=== PATIENT | female | born 1980 | race Caucasian/White ===

== ENCOUNTER 2019-10-29 16:20 | Outpatient (CLI) | payer OTHER, SELFPAY ==
--- NOTE | ~2019-10-29 | XR_ITS ---
XR shoulder LT min 2V DATE: 10/29/2019 16:54 INDICATION: Left shoulder pain. No injury. TECHNIQUE: 4 views COMPARISON: None FINDINGS: No fracture or dislocation, periosteal reaction or bone destruction. No abnormal soft tissu e calcification. IMPRESSION: Negative Reviewed, dictated and finalized at location B. IMPRESSION: Negative
== END 2019-10-29 16:21 | disposition home or self-care (01) ==
LOC: ANHIMG 16:30
PROVIDERS: PCP Family Medicine; Visit Provider Family Medicine
DX: M25.512 Pain in left shoulder (principal)
CPT/HCPCS: 73030

== ENCOUNTER 2020-03-19 00:28 | Outpatient (CLI) | payer OTHER, SELFPAY ==
[2020-03-19 18:52] LABS: SARS-CoV-2 RNA PCR Negative
== END 2020-03-19 00:29 | disposition home or self-care (01) ==
LOC: ANHCOVIDDT 00:28
PROVIDERS: PCP Family Medicine; Visit Provider Orthopaedic Surgery
DX: Z01.812 Encounter for preprocedural laboratory examination (principal); Z11.59 Encounter for screening for other viral diseases
CPT/HCPCS: 87635; C9803; U0003

== ENCOUNTER 2020-03-21 00:10 | Day surgery (SDC) | payer OTHER, SELFPAY ==
[2020-03-10 13:53] VITALS: BMI 27.4
[2020-03-21] VITALS (10 sets, daily range): BP systolic 110–130; BP diastolic 49–84; PULSE 76–107; RESP 12–20; TEMP 36.6; O2SAT 98–100
--- NOTE | 2020-03-21 09:23 | WPDHPUPDATE1 ---
History and Physical Update Update Date/Time: 03/21/20 09:23 History and Physical has been reviewed, including an updated exam of the patient. There are NO changes in the patient's condition. Risks, benefits, and alternatives have been discussed and questions answered. Patient agrees to proceed with procedure.
--- NOTE | 2020-03-21 10:29 | WPDANESEPPF ---
Anes - Initial Pre Proc Eval Procedure: Operation Date: 03/21/20 12:00 Proposed Procedures p Left Shoulder Arthroscopic Subacromial Decompression - Arden Hernandez MD Date/Time: 03/21/20 10:29 Surgeon: Arden Hernandez MD Pre Op Diagnosis: Left Shoulder Impingement Patient Data Age: 39 Gender: F Height: 5 ft 6 in Weight: 77.11 kg Allergies Allergy/AdvReac Type Severity Reaction Status Date / Time strawberry Allergy Mild hives Verified 03/10/20 13:52 Home Medications Medication Instructions Recorded Confirmed Type acetaminophen [Tylenol] 325 mg PO DIRECTED PRN 03/10/20 03/10/20 History desogestrel-ethinyl estradiol 1 tablet PO DAILY 03/10/20 03/10/20 History [Enskyce] Patient hx anesthesia problems: none Family hx anesthesia problems: none PMFSH Past Medical History Medical History (Updated 03/20/20 @ 10:26 by Noah Toledo DO) Hyperlipidemia Hypoglycemia Migraine Surgical History Surgical History H/O excision of ganglion cyst (~1993) H/O excision of ganglion cyst (~2000) S/P right knee arthroscopy (~1998) Social History Social History Social History: Single Smoking status: Never smoker Second hand tobacco smoke exposure: No Alcohol intake: never Substance use: never Substance use type: does not use Gender identity (if verbalized by the patient): Female Spiritual care concerns: No Anes - Eval Final PreProcedure Day of Procedure 03/21/20 10:29 Patient weight: normal Heart: regular rate and rhythm Lungs: clear to auscultation Airway: Mallampati scale class II Neurological: alert and oriented Last oral intake: >/= 8 hours ASA classification: II Emergent: no Anesthetic plan: proceed Anesthesia type and monitoring: general ETT and standard monitoring Informed Consent: The patient's anesthetic plan and its attendant risks and benefits were discussed with the patient/family/POA. Questions were solicited and answers provided to the satisfaction of the patient/family/POA.
[2020-03-21] MEDS: LACTATED RINGERS 1,000 ML 30 ML IV CONT ×2 (10:30→13:56)
[2020-03-21] MEDS: ACETAMINOPHEN 500 MG TABLET 1000 MG PO (10:56)
[2020-03-21] MEDS: KETOROLAC 15 MG/ML VIAL (*BKC) IV PUSH (10:57)
[2020-03-21] MEDS: ceFAZolin 2 GM/D5W 50 ML 2 GM/50 ML BAG IVPB (12:17)
[2020-03-21] MEDS: BUPIVACAINE/EPINEPHRINE 0.5% 10 ML VIAL 30 ML INFILTRATE (12:57)
--- NOTE | 2020-03-21 13:39 | PM.PROC ---
Procedure Note - Detailed Date of procedure: 03/21/20 Pre-op diagnosis: Left Shoulder Impingement Post-op diagnosis: same Procedure performed: Arthroscopic rotator cuff bursal side debridement and subacromial decompression Anesthesia: GLMA Surgeon: Arden Hernandez MD Estimated blood loss (mL): 10 Complications: No immediate complications Condition: stable Disposition: PACU
[2020-03-21 14:27] LABS: Glucose Point of Care 145 (65-105)
[2020-03-21] MEDS: ONDANSETRON INJ 4 MG/2 ML VIAL IV PUSH (14:31)
[2020-03-21] MEDS: diphenhydrAMINE HCl INJ 50 MG/ML VIAL 25 MG IV PUSH (15:30)
--- NOTE | 2020-04-11 09:49 | P.OP_ITS ---
Procedure Note - Detailed Date of procedure: 03/21/20 Pre-op diagnosis: Left Shoulder Impingement Post-op diagnosis: same Procedure performed: Arthroscopic subacromial decompression with bursal side rotator cuff debridement. Anesthesia: GLMA Surgeon: Arden Hernandez MD Estimated blood loss (mL): 10 Pathology: none sent Complications: No immediate complications Condition: stable Disposition: PACU Findings: Brief history: The patient complained of persistent pain with overhead and reaching activities. Pain persisted despite physical therapy and cortisone injections. Operative details: Patient was given an interscalene block in the holding area. Preoperative antibiotics were given. The patient was brought to the operating room. Careful positioning in the beach chair was accomplished. The head neck were carefully positioned. A small bump was placed under the left shoulder. The shoulder was examined. The shoulder was prepped and draped in the usual sterile fashion. Standard posterior and anterior arthroscopic portals were est ablished. The shoulder was inspected. The glenohumeral articulation appeared normal. Attention was turned to the subacromial space. A complete bursectomy was performed. An accessory lateral portal was created. The rotator cuff showed fraying on the bursal side of the supraspinatus. This was superficial but appeared to be directly related to impingement on a frayed area at the anterolateral acromion. The coracoacromial ligament was released. Careful acromioplasty was performed utilizing views from both lateral and posterior. Loose bone fragments were carefully irrigated from the joint. The arthroscopic instruments were removed. The wounds were closed with interrupted 3-0 Monocryl suture followed by Steri-Strips. A sterile dressing was applied with a sling. The patient was extubated and brought to the recovery room in stable condition. There were no complications.
== END 2020-03-21 16:52 | disposition home or self-care (01) ==
PROVIDERS: PCP Family Medicine; Visit Provider Orthopaedic Surgery
PROC: (CPT 29805; principal; 2020-03-21 12:00)
DX: M75.42 Impingement syndrome of left shoulder (principal); E78.5 Hyperlipidemia, unspecified
CPT/HCPCS: 29827; 29826; A4565; A9270; J0690; J1100; J1200; J1885; J2250; J2405; J2704; J3010; J7120

== ENCOUNTER 2022-07-15 15:57 | Outpatient (CLI) | payer OTHER, SELFPAY ==
--- NOTE | ~2022-07-15 | XR_ITS ---
EXAMINATION: XR chest 2V DATE: 07/15/2022 16:26 INDICATION: Cough, unspecified TECHNIQUE: Frontal and lateral views of the chest are obtained COMPARISON: 12/20/2018 FINDINGS: The lungs are free of acute opacities. No pleural effusion or pneumothorax. The cardiomedia stinal silhouette is normal. The visualized bones and soft tissues are unremarkable. IMPRESSION: 1. No acute cardiopulmonary abnormality. Reviewed, dictated and finalized at location A. 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
== END 2022-07-15 15:58 | disposition home or self-care (01) ==
LOC: ANHIMG 16:03
PROVIDERS: PCP Family Medicine; Visit Provider Physician Assistant
DX: R05.9 Cough, unspecified (principal)
CPT/HCPCS: 71046

== ENCOUNTER 2022-07-26 17:00 | Outpatient (CLI) | payer OTHER, SELFPAY ==
[2022-07-26 18:13] LABS: SARS-CoV-2 RNA PCR Negative
== END 2022-07-26 17:01 | disposition home or self-care (01) ==
LOC: ANHLAB 17:01
PROVIDERS: PCP Family Medicine; Visit Provider Nurse Practitioner Gerontology
DX: Z20.822 Contact with and (suspected) exposure to COVID-19 (principal)
CPT/HCPCS: U0003; U0005

== ENCOUNTER → 2022-11-03 16:17 | Outpatient (CLI) | payer OTHER, SELFPAY ==
--- NOTE | ~2022-11-03 | US_ITS ---
Thyroid ultrasound. Clinical History: Nontoxic goiter Findings: Real-time sonography of the thyroid gland was performed. The right lobe measures 4.6 x 2.0 x 1.5 cm. The left lobe measures 4.2 x 1.4 x 1.5 cm. The isthmus is 4 mm in AP diameter. There is a 9 x 8 x 9 mm hypoechoic solid nodule at the posterior aspect of the right midpole. Impression: 9 mm TR-4 nodule in the right thyroid lobe, as detailed above. This is below size threshold for biops y. Consider annual follow-up ultrasound. Reviewed, dictated and finalized at location . Impression: 9 mm TR-4 nodule in the right thyroid lobe, as detailed above. This is below si ze threshold for biopsy. Consider annual follow-up ultrasound.
== END ==
PROVIDERS: PCP Family Medicine; Visit Provider Family Medicine
DX: E04.9 Nontoxic goiter, unspecified (principal)
CPT/HCPCS: 76536

== ENCOUNTER 2025-07-26 00:57 | Day surgery (SDC) | payer OTHER, SELFPAY ==
[2025-07-04 12:51] VITALS: BMI 30.7
--- OUTSIDE RECORDS SUMMARY | 2025-07-26 01:00 | XMS_ITS | Data Portability ---
Author Organization [facility], Main Office Address [address] [place] [address] Assessment No assessment recorded. Plan of Treatment Reminders Order Date Submit Date Provider Last Modified By Organization Details Last Modified Time Details Appointments None recorded. Lab None recorded. Referral None recorded. Procedures None recorded. Surgeries endoscopy, nasal/sinus , w/ maxillary antrostomy & tissue removal (SURG) 2022 023 [email or web address] Not available 3 08:32:44 endoscopy, nasal/sinus , w/ total ethmoidecto my (SURG) 2022 023 [email or web address] Not available 3 08:32:44 endoscopy with removal of sphenoid sinus tissue (SURG) 2022 023 [email or web address] Not available 3 08:32:45 Imaging None recorded. Medication Orders Medrol (Ashwin) 4 mg tablets in a dose pack 2022 023 [email or web address] Not available 3 11:10:15 clindamycin HCl 300 mg capsule 2022 023 [email or web address] Not available 3 08:33:51 Patient TargetsNo targets recorded. Patient InstructionsNo instructions recorded. Reason for Referral None Reported. Results Created Date Observation Date Name Description Value Unit Range Abnormal Flag Note LastModifiedBy Organization Detail LastModifiedTime 10/10/19 23 10/09/2022 CT, sinus es, w/o contr ast No observ ation record ed. [id number] [facility] [address] [place], [address], 10/14/2022 01:47:39 10/11/19 23 10/09/2022 CT, sinus es, w/o contr ast No observ ation record ed. [id number] [facility] [address] [place], [address], 10/14/2022 01:47:39 11/05/19 23 11/03/2022 US, thyro id No observ ation record ed. [email or web address] [facility] [address], [place], [address], 11/09/2022 11:57:15 Result Notes None recorded. Problems Name Problem SNOMED Code Status Onset Date Resolution Date Notes Provider Name and Address Organization Details Recorded Time Chronic sinusitis 01329596 Active 023 Not Available [facility] 3 01:46:54 Chronic cough 16971626 Active 023 Not Available [facility] 3 01:46:54 Chronic maxillary sinusitis 68662963 Active 023 Not Available [facility] 3 01:46:53 Chronic ethmoidal sinusitis 23765343 Active 023 Judah Rodriguez MD [address] [facility], [place] [address], [place], [address] , [employer] [facility] 3 15:59:43 Chronic sphenoidal sinusitis 63112463 Active 023 Judah Rodriguez MD [address] [facility] [address], [place], [address] , [employer] 3 15:59:58 Problem Notes None recorded. Procedures Surgical History Date Name Laterality Status Provider Name and Address Organization Details Recorded Time ENDOSCOPY, NASAL/SINUS, W/ MAXILLARY ANTROSTOMY & TISSUE REMOVAL (SURG) completed Stacey Durant RN [facility] 11/17/2022 14:06:37 Imaging Results None recorded. Procedure Notes None recorded. Medical Equipment None Reported. Allergies Allergen ID Allergen Name Allergen Category Reaction Reaction Severity Criticality Documentation Date Start Date Code Code System Note Provider Name and Address Organization Details Recorded Time 92453 strawberr y allergeni c extract food Not available Not available Not available 10/14/2022 10688 4 RxNorm Not Available [facility] 3 01:47:38 Medications Name Sig Start Date Stop Date Status Note LastModified by Organization Details LastModified Time prednisone 10 mg tablet TAKE 4 TABS DAILY X3 DAYS, 3 TABS DAILY X3 DAYS, 2 TABS DAILY X3 DAYS, 1 TAB DAILY X3 DAYS. 10/22 completed Not Available Not Available Not Available clindamycin HCl 300 mg capsule TAKE 1 CAPSULE BY MOUTH EVERY 8 HOURS FOR 7 DAYS active Not Available Not Available No t Available azithromyci n 250 mg tablet TAKE 2 TABLETS BY MOUTH TODAY, THEN TAKE 1 TABLET DAILY FOR 4 DAYS 10/22 completed Not Available Not Available Not Available hydrocodone 7.5 mg-acetamin ophen 325 mg tablet TAKE 1 TABLET BY MOUTH EVERY 4 HOURS NEEDED active Not Available Not Available No t Available metoprolol tartrate 50 mg tablet active Not Available Not Available No t Available codeine 10 mg-guaifene sin 100 mg/5 mL oral liquid TAKE 5 ML ORALLY EVERY 4 - 6 HOURS NEEDED FOR COUGH active Not Available Not Available No t Available acyclovir 200 mg capsule active Not Available Not Available Not Available furosemide 20 mg tablet TAKE 1 TABLET BY MOUTH EVERY DAY IN THE MORNING active Not Available Not Available No t Available methylpredn isolone 4 mg tablets in a dose pack TAKE 6 TABLETS ON DAY 1 DIRECTED ON PACKAGE AND DECREASE BY 1 TAB EACH DAY FOR A TOTAL OF 6 DAYS active Not Available Not Available No t Available albuterol sulfate HFA 90 mcg/actuati on aerosol inhaler USE 1 INHALATIO N EVERY 4 HOURS NEEDED FOR SHORTNESS OF BREATH OR WHEEZING active Not Available Not Available No t Available methimazole 10 mg tablet active Not Available Not Available Not Available cefdinir 300 mg capsule Take 1 capsule every 12 hours by oral route for 10 days. 10/22 completed Not Available Not Available Not Available amoxicillin 875 mg-potassiu m clavulanate 125 mg tablet TAKE 1 TABLET BY MOUTH TWICE A DAY 10/22 completed Not Available Not Available Not Available Symbicort 80 mcg-4.5 mcg/actuati on HFA aerosol inhaler INHALE 2 PUFFS BY MOUTH 2 TIMES A DAY RINSE MOUTH WITH WATER AFTER USE. DO NOT SWALLOW. active Not Available Not Available No t Available Enskyce 0.15 mg-0.03 mg tablet active Not Available Not Available Not Available Vitals Date Recorded Body mass index (BMI) Body height Body temperature Body weight Provider Name and Address Organization Details Last Updated DateTime 09/28/2022 30 kg/m2 167.64 cm 97.9 [degF] 34860.18 g Not Available [facility] 10/14/2022 01:46:53 Date Recorded Body height Body mass index (BMI) Body weight Body temperature Provider Name and Address Organization Details Last Updated DateTime 10/22/2022 167.64 cm 30.7 kg/m2 21743.19 g 98.1 [degF] Stacey Durant RN MA [employer] [facility] [employer] 10/22/2022 15:37:21 Date Recorded Body height Body mass index (BMI) Body weight Body temperature Provider Name and Address Organization Details Last Updated DateTime 11/25/2022 167.64 cm 30.2 kg/m2 49031.77 g 97.7 [degF] Edna Soria CMA [employer] 11/25/2022 10:54:03 Social History None recorded. Functional Status Question Answer Note LastModified by Organizat ion Details LastModified Time What is your level of alcohol consumption? None [id number] Information not available 10/14/2022 Mental Status None recorded. Family History Nothing Reported. Medical History Condition Response SLEEP APNEA N MRSA N ALLERGIES/HAYFEVER N LUNG DISEASE/DISORDER N INSOMNIA N HISTORY OF DRUG ABUSE N RADIATION / CHEMOTHERAPY N COPD N HIGH CHOLESTEROL / HYPERLIPIDEMIA N HYPERTHYROIDISM N BLOOD DISEASES N EAR OR HEARING PROBLEMS N HYPOTHYROIDISM N SHINGLES N DEPRESSION (INCLUDING POST ) N HAVE YOU BEEN HOSPITALIZED OR SEEN IN [facility] ER IN THE PAST YEAR ? N STROKE/TIA N ULCERS N OBESITY N HISTORY WITH COMPLICATIONS WITH ANESTHES IA ? N ANEURYSM N USE OF BLOOD THINNERS N NO SIGNIFICANT PAST MEDICAL HISTORY N DIABETES, TYPE N PARATHYROID DISEASE N ENT N SEASONAL ALLERGIES N HEARTBURN / REFLUX N HEPATITIS / LIVER DISEASE N SLEEP DISORDER N SEIZURES/EPILEPSY N HEADACHES/MIGRAINES N CHF N PACEMAKER N DIZZINESS N HEART DISEASE/HEART PROBLEMS N AIDS/HIV N FRACTURES N HYPERTENSION N CANCER: SPECIFY N TOURETTE'S N BLOOD TRANSFUSION N ANESTHESIA COMPLICATIONS N ANEMIA/BLOOD DISORDER N CHRONIC EAR INFECTIONS N AUTOIMMUNE DISEASE N TUBERCULOSIS N Gynecological HistoryNo gynecological history recorded. Obstetrics History GPAL:G 0 P 0 0 0 0 Past Encounters Encounter ID Performer Location Encounter Start Date Encounter Closed Date Diagnosis/Indication Diagnosis SNOMED-CT Code Diagnosis ICD10 Code Diagnosis IMO Codes Diagnosis Note [id number] Judah Rodriguez MD [facility] [place] [address] [place] [address] 09/28/2022 00:00:00 09/28/2022 11:31:13 [id number] MD [facility] [place] [address] [place] [address] 10/22/2022 15:27:11 10/22/2022 16:08:16 Chronic maxillary sinusitis 98097350 J32.0 Chronic et hmoidal sinusitis 08871243 J32.2 Chronic sp henoidal sinusitis 62306900 J32.3 [id number] MD [facility] [place] [address] [place] [address] 11/25/2022 10:05:38 11/25/2022 11:20:41 Chronic sinusitis 40802894 J32.9 Health Concerns Section Related Observation LastModified by Organization Detai ls LastModified Time None Recorded Concern Status LastModified by Organization Details LastModified Time None Recorded Advance Directives Directive None Recorded Payers Insurance Date Sequence Insurance Name Policy Number Policy Angela Covered Member ID Angela Member ID Guarantor Name 11/25/2022 1 [employer] (POS II) [id number] Alyse Romo [id number] Alyse Romo Notes Date Note Type Note Provider Name and Address Organization Details Recorded Time 10/22/2022 text/html the sinus CT revealed ethmoid maxillary and sphenoid sinusitis with 50% obstruction of the right maxillary sinus. The patient's cough remains. She reports that it might have been somewhat better while on antibiotics. She is out had 3D antibiotics and is about to take her 4th course. Judah Rodriguez MD [address] [place] [address], [facility] [address], [place], [address], [facility] [employer] [facility] 10/22/2022 16:00:50 11/25/2022 text/html Patient had dislodgement of her right propel implant otherwise is doing well except for complaints of pressure on the right side Judah Rodriguez MD [address] [place] [address], [place] [address], [place], [address], [place] [facility] [place] [employer] 11/25/2022 11:10:29 OBGyn Episode No OBEpisode recorded.
--- OUTSIDE RECORDS SUMMARY | 2025-07-26 01:00 | XMS_ITS | Clinical Summary ---
Author Organization [facility] Address [address] [facility] [place] [address] Care Team Providers Care Director Targeted Marketing Name Role Phone Unavailable Primary Care Provider Unavailabl e Source Comments [facility],non-owned Affiliates and Associated Physician Practices is amultiple site organization consisting of ambulatory clinics and hospital sitesin [place] and [place]. This disclosure is being madepursuant to the Care Everywhere program and may not contain all information available regarding this patient. Last updated 18.[facility] Allergies Active Allergy Reactions Criticality Noted Date Comments [place] Urticaria Medium Medications * Be aware that medications may not be up to date on this document. Alwaysverify current medications with the patient. norgestim-eth estrad triphasic (TRINESSA, 28,) tablet Take 1 tablet by mouth once daily Active fluticasone propionate (FLONASE) 50 MCG/ACT nasal spray [place] 1 spray into each nostril 2 times daily 1 bottles 9 Active azithromycin (ZITHROMAX) 250 MG tabletIndications: Acute streptococcal pharyngitis Take 2 tabs today, then 1 tab daily for next 4 days 6 tablet 9 Active Social History Tobacco Use Types Packs/Day Years Used Date Smoking Tobacco: Never Smokeless Tobacco: Never Tobacco Cessation:Counseling Given: Yes Comments No Sex and Gender Information Value Date Recorded Sex Assigned at Not on file 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 Gender Identity Not on file Sexual Orientation Not on file Last Filed Vital Signs Vital Sign Reading Time Taken Comments Blood Pressure 122/64 10/28/2018 9:59 AM CDT Pulse 76 10/28/2018 9:59 AM CDT Temperature 37.3 C (99.2 F) 10/28/2018 9:59 AM CDT Respiratory Rate - - Oxygen Saturation 98% 10/28/2018 9:59 AM CDT Inhaled Oxygen Concentration - - Weight 81.6 kg (180 lb) 10/28/2018 9:59 AM CDT Height 167.6 cm (5' 6) 10/28/2018 9:59 AM CDT Body Mass Index 29.05 10/28/2018 9:59 AM CDT Plan of Treatment Health Maintenance Due Date Last Done Comments LIPID TESTING 1981 MAMMOGRAM 1981 HIV SCREENING 1996 HEPATITIS C SCREENING 12/12/1999 DTAP/TDAP/TD VACCINES (1 - Tdap) 2000 HEPATITIS B VACCINE (1 of 3 - 19+ 3-dose series) 2000 HPV VACCINE (1 - 3-dose SCDM series) 2008 DEPRESSION SCREENING 08/15/2024 COVID-19 VACCINE (1 - 2024-2 6 season) 2025 INFLUENZA VACCINE (#1) 2025 ZOSTER VACCINE (1 of 2) 12/17/2031 HIB VACCINE Aged Out No longer eligi ble based on patient's age to complete this topic MENINGOCOCCAL (Group B) VACC INE SHARED DECISION-MAKING Aged Out No longer eligibl e based on patient's age to complete this topic MENINGOCOCCAL GROUPS A/C/Y/W VACCINE Aged Out No longer eligible b ased on patient's age to complete this topic PNEUMOCOCCAL VACCINE Aged Out No long er eligible based on patient's age to complete this topic Insurance [employer] [employer]
--- OUTSIDE RECORDS SUMMARY | 2025-07-26 01:00 | XMS_ITS | Encounter Summary ---
Author Organization [facility] Healthcare Address [address] [place] [address] Care Team Providers Care Pyrometer Mechanic Name Role Phone Carmen Perez MD Primary Care Provider Ashley Echeverria DO Unavailable [phone] Julien Kaufman MD Unavailable [phone] Yasmany Anderson MD Unavailable Lucia Mariscal MD Primary Care Provide r Encounter Details Date Type Department Care Team (Late Contact Info) Description 09/12/2020 Telephone [facility] [address] [place] [address] Alyse Munoz, RT Social History Tobacco Use Types Packs/Day Years Used Date Smoking Tobacco: Never Smokeless Tobacco: Never Alcohol Use Standard Drinks/Week Comments Yes 0 (1 standard drink = 0.6 oz pur e alcohol) Comments No Sex and Gender Information Value Date Recorded Sex Assigned at Not on file Legal 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 Gender Identity Female 08/25/2020 7:05 PM HEALTH EDUCATION COORDINATOR Sexual Orientation Not on file documented as of this encounter Plan of Treatment Upcoming Encounters Date Type Department Care Team ([facility] Contact Info) Description 12/23/2025 7:30 AM CDT Hospital Encounter [facility] [address] [place] [address] Mic Hernández DO [address] [facility] [address] [place] [address] 12/23/2025 7:30 AM CDT - 12/23/2025 8:00 AM CDT Surgery [facility] [address] [place] [address] Mic Hernández DO [address] [facility] [address] [place] [address] COLONOSCOPY Scheduled Procedures Name Priority Associated Diagnoses Date/Ti me COLONOSCOPY Family history of colon cancer Encounter for screening colonoscopy 12/23/2025 7:30 AM CDT documented as of this encounter Visit Diagnoses Not on filedocumented in this encounter Care Teams Pyrometer Mechanic Relationship Specialty Start Date End Date Carmen Perez MD [address] [facility] [address] [place] [address] PCP - General Family Medicine 10/11/19 02/26/25 Lucia Mariscal MD [address] [place] [address] [address] [place] [address] PCP - General Family Medicine 02/27/25 Ashley Echeverria DO [address] [facility] [address] [facility] [address] [place] [address] Consulting Physician Otolaryngology 02/27/25 [place] [address] [address] Consulting Physician Endocrinology Diabetes & Metabolism 02/27/25 Yasmany Anderson MD [address] [place] [address] [address] [place] [address] Consulting Physician Pulmonary Disease 02/27/25 documented as of this encounter
--- OUTSIDE RECORDS SUMMARY | 2025-07-26 01:00 | XMS_ITS | Clinical Summary ---
Author Organization [facility] [address] Address [address] [employer] [place] [address] Phone Care Team Providers Care Bump Grader Operator Name Role Phone Ashley Echeverria DO Unavailable [phone] Julien Kaufman MD Unavailable [phone] Yasmany Anderson MD Unavailable Lucia Mariscal MD Primary Care Provide r Allergies Active Allergy Reactions Criticality Noted Date Comments [place] Hives,Urticaria Medium Medications ibuprofen (ADVIL,MOTRIN) 600 mg tabletIndication s:Cramps Take 1 tablet (600 mg total) by mouth every 6 (six) hours as needed for pain. 30 tablet 1 8 Active Additional Information Patient not taking.Reported on 04/25/2025 acyclovir (ZOVIRAX) 200 mg capsule Take 1 capsule (200 mg total) by mouth as needed 0 Active Enskyce 0.15-0.03 mg per tablet Take 1 tablet by mouth management advisor before breakfast 0 Active acetaminophen (TYLENOL) 500 mg tablet Take 1 tablet (500 mg total) by mouth every 6 (six) hours as needed for pain Active multivitamin capsule Take 1 capsule by mouth management advisor before breakfast Active amoxicillin/pota ssium clav (AMOXICILLIN-POT CLAVULANATE ORAL) 2 (two) times a day 2 Active albuterol (PROAIR RESPICLICK) 90 mcg/actuation inhaler Q4H 2 Active codeine phosphate/guaife nesin (CODEINE-GUAIFEN ESIN ORAL) 5 mL 2 Active desogestreL-ethi nyl estradioL (APRI) 0.15-0.03 mg per tablet daily 0 Active predniSONE 1 mg tablet,delayed release (DR/EC) daily 2 Active Active Problems Problem Noted Date Diagnosed Date Class 1 obesity due to exces s calories with serious comorbidity and body mass index (BMI) of 31.0 to 31.9 in adult 02/27/2025 Assessment & Plan (02/27/2025 10:32 AM CDT): Family history of colon cancer 02/27/2025 Encounter for screening colonoscopy 02/27/2025 Encounter for wellness examination 02/26/2025 Assessment & Plan (02/27/2025 10:32 AM CDT): Ordered CBC, cmp, lipid, hgb a1c, hep c, hep b screening TSH w/ reflex to t4 Pap smear managed by ob Mammo due in jul Recommend staying up to date on vaccines F/u in 1 year for annual Orders: Thyroid Function [facility]; Future Lipid panel; Future Hemoglobin A1c; Future Comprehensive metabolic panel; Future CBC with auto differential; Future Encounter to establish care 02/26/2025 Assessment & Plan (02/27/2025 10:32 AM CDT): Right thyroid nodule 12/06/2022 Assessment & Plan (04/25/2025 8:40 AM CDT): Chronic problem. Denies compressive symptoms. Last US 09/19/23 with stable 9mm R thyroid nodule. Will update US thyroid. Verified that she uses [employer]. Aware to check results/results letter in [employer]. Will contact by phone if needed. Assessment & Plan (02/27/2025 10:32 AM CDT): Assessment & Plan (05/28/2024 8:35 PM CDT): Chronic stable Noted 9 mm right thyroid nodule, No need for FNA biopsy Plan to repeat thyroid ultrasound 09/2024 Assessment & Plan (09/19/2023 9:53 AM TELEHEALTH NURSE EDUCATOR): Performed a follow-up thyroid ultrasound in office today Noted 9 mm right thyroid nodule, chronic, stable No need for FNA biopsy Plan to repeat thyroid ultrasound 09/2024 Assessment & Plan (04/21/2023 3:44 PM CDT): Thyroid ultrasound on 11/03/22 No thyromegaly 9 mm nodule on the right lobe TR4 Plan: Nodule can be monitored and repeat thyroid Ultrasound in October 2023 Assessment & Plan (01/18/2023 2:46 PM CDT): Thyroid ultrasound on 11/03/22 No thyromegaly 9 mm nodule on the right lobe TR4 Plan: Nodule can be monitored and repeat thyroid Ultrasound in one year. Assessment & Plan (12/06/2022 3:59 PM CDT): Thyroid ultrasound on 11/03/22 No thyromegaly 9 mm nodule on the right lobe TR4 Plan: Nodule can be monitored and repeat thyroid Ultrasound in one year. Hyperthyroidism 12/06/2022 Assessment & Plan (04/25/2025 8:38 AM CDT): Chronic problem. Asymptomatic on current methimazole 5mg daily. Will update labs end of 06/2025. Verified that she uses [employer]. Aware to check results/results letter in [employer]. Will contact by phone if needed. Assessment & Plan (02/27/2025 10:32 AM CDT): Orders: Thyroid Function [facility]; Future Assessment & Plan (05/28/2024 8:34 PM CDT): Chronic, stable Patient currently on methimazole 5 mg oral daily Recheck thyroid function test include thyroid antibodies Further plans based on it Assessment & Plan (09/19/2023 9:53 AM TELEHEALTH NURSE EDUCATOR): Chronic, unknown status Patient currently on methimazole 10 mg oral daily Recheck thyroid function test today include thyroid antibodies Further plans based on it Assessment & Plan (04/21/2023 3:44 PM CDT): Patient started Methimazole in November/2022 Patient is clinically euthyroid Labs on 04/09/23 TSH 0.78 Free T4 of 0.8 Plan: continue Methimazole to 10 mg /day Check labs in 2 month Assessment & Plan (01/18/2023 2:48 PM CDT): Patient started Methimazole in November/2022 Patient is clinically euthyroid TSH 0.0 on 01/15/23 Normal free T4 of 1.0 Normal free T3 of 3.7 Plan: Decrease Methimazole to 15 mg /day ( 1and 1/2 tab /day) Decrease Metoprolol once /day Check labs before next visit. Assessment & Plan (12/06/2022 3:58 PM CDT): Patient symptomatic for about 6 month Labs on 11/02/22 TSH 0.0 Free T4 of 2.5 Free T3 of 573 ( 75-181) Plan: The abnormal labs reviewed and explained to patient Options of treatment discussed with patient including LOVE or surgery- patient agrees with medical treatment. We will start treatment with Methimazole 40 mg /day for 2 weeks then 30 mg /day- side effects explained. Continue Metoprolol twice /day Check labs before next visit. Chronic ethmoidal sinusitis 10/21/2022 Chronic sphenoidal sinusitis 10/21/2022 Chronic cough 09/27/2022 Chronic maxillary sinusitis 09/27/2022 Hip dysplasia, acquired, right 09/01/2020 Overview (09/01/2020): Added automatically from request for surgery [id number] Hyperlipidemia 12/29/2013 Overview (11/18/2016): Hyperlipidemia Assessment & Plan (02/27/2025 10:32 AM CDT): Orders: Lipid panel; Future Migraine 12/29/2013 Overview (11/18/2016): Migraine Encounters Date Type Department Care Team Description 07/13/2025 Results Follow-Up [facility] Diabetes and Endocrinology [address] [place] [phone] Cecily Hamm NP T4, free, T3, free, TSH 05/07/2025 Orders Only [facility] Primary Care at [address] [place] [address] Lucia Mariscal MD Encounter for screening colonoscopy (Primary Dx); Family history of colon cancer from Last 3 Months Immunizations Immunization Administration Dates Next Due Influenza, Quadrivalent, Miguelina l Culture-based MDCK, Preservative Free, Antibiotic Free, Intramuscular 06/06/2022,05/24/2020 Influenza, Quadrivalent, Spl it, Preservative Free, Intramuscular 06/04/2021 Tdap 02/02/2018,08/15/2009 Surgical History Surgery Date Site/Laterality Comments KNEE SURGERY 08/15/1997 - 08/14/1998 Right GANGLION CYST EXCISION 1997, 2001, 2004 KNEE ARTHROSCOPY 20 years ago Right SHOULDER ARTHROSCOPY 03/15/2020 - 04/14/2020 Left SHOULDER SURGERY KNEE ARTHROSCOPY HIP SURGERY 09/26/2020 Right SINUS SURGERY 11/16/2022 SINUS SURGERY 11/13/2022 - 12/12/2022 Medical History Medical History Date Comments (normal spontaneous vag inal delivery) 03/08/2018 Vigorous female infant. Apga rs 8/9. Dr. Goldstein. Thyroid disease Sinusitis Family History Medical History Relation Name Comments Heart disease Father Hyperlipidemia Father Hypertension Father Cancer Maternal Grandfather Cancer Maternal Grandmother Emphysema Maternal Grandmother Hyperlipidemia Mother Hyperlipidemi a; Lung cancer Mother Lupus Mother Lupus erythemat osus; Colon cancer Mother's Sister Cancer -colo n; Coronary artery disease Paternal Grandfather Coronary artery disease; Coronary artery disease Paternal Grandmother Anesthesia problems Neg Hx Breast cancer Neg Hx Ovarian cancer Neg Hx Thyroid cancer Neg Hx Relation Name Status Comments Father Alive Maternal Grandfather Maternal Grandmother Mother Mother's Sister Paternal Grandfather Paternal Grandmother Sister Alive Social History Tobacco Use Types Packs/Day Years Used Date Smoking Tobacco: Never Passive Smoke Exposure: Never Smokeless Tobacco: Never Alcohol Use Standard Drinks/Week Comments Not Currently 0 (1 standard drink = 0.6 oz pur e alcohol) PHQ-2 Answer Date Recorded PHQ-2 Total Score (If total score is 3 or more points, staff should administer the PHQ-9) 0 02/27/2025 Comments No Sex and Gender Information Value Date Recorded Sex Assigned at Not on file Legal Sex Female 10:36 AM TELEHEALTH NURSE EDUCATOR Gender Identity Female 08/25/2020 7:05 PM TELEHEALTH NURSE EDUCATOR Sexual Orientation Not on file Obstetrics History Para Term AB IAB SAB Ectopic Multiple Livin g Live Births 1 1 1 0 0 0 1 1 Date Outcome GA Total Labor Labor/2nd/3rd Weight Sex Type Anes PTL Kezia A1 A5 Name Clin 2017 Term 38w 3d 15h 00m 11h 30m/3h 22m/0h 08m 3.676 kg (8 lb 1.7 oz) F Vag-S pont Epidur al N Livin g 9 9 [facility] VIRAMOTNES , Veronika Miller MD Complications:None Delivery Location:This [facility] ([facility] Last Filed Vital Signs Vital Sign Reading Time Taken Comments Blood Pressure 128/82 04/25/2025 8:41 AM CDT Pulse 85 04/25/2025 8:41 AM CDT Temperature 36.8 C (98.3 F) 02/27/2025 9:51 AM CDT Respiratory Rate 16 04/25/2025 8:41 AM CDT Oxygen Saturation 99% 02/27/2025 9:51 AM CDT Inhaled Oxygen Concentration - - Weight 89.3 kg (196 lb 12.8 oz) 04/25/2025 8:41 AM CDT Height 165.1 cm (5' 5) 04/25/2025 8:41 AM CDT Body Mass Index 32.75 04/25/2025 8:41 AM CDT Plan of Treatment Upcoming Encounters Date Type Department Care Team (Late st Contact Info) Description 12/23/2025 7:30 AM CDT Hospital Encounter [address] [address] Mic Hernández, [address] [place] [address] 12/23/2025 7:30 AM CDT - 12/23/2025 8:00 AM CDT Surgery [facility] [address] [place] [address] Mic Hernández, [address] [place] [address] COLONOSCOPY Scheduled Procedures Name Priority Associated Diagnoses Date/Ti me COLONOSCOPY Family history of colon cancer Encounter for screening colonoscopy 12/23/2025 7:30 AM CDT Health Maintenance Due Date Last Done Comments HPV Vaccines (1 - 3-dose SCDM series) 2008 Covid-19 Vaccine ( season) 2025 07/05/2021, 11/30/2020, 11/09/2020 Influenza Vaccine (#1) 2025 , 06/04/2021, 05/24/2020 Breast Cancer Screening-Mammogram 07/25/2025 07/25/2024, 07/19/2023, 07/16/2022 Depression Screening 02/27/2026 02/27/2025 Regular Well Visit/Exam 18-64 02/27/2026 02/27/2025 DTaP/Tdap/Td Vaccine (3 - Td or Tdap) 02/03/2028 02/02/2018, 08/15/2009 Cervical Cancer Screening 06/14/2029 06/14/2024 Hepatitis B Screening Completed 03/02/2025 Hepatitis C Screening Completed 03/02/2025 Pneumococcal vaccine <65 Aged Out No longer eligible based on patient's age to complete this topic Varicella Vaccines Discontinued Medical Devices Implanted Type Area District Loss Prevention Manager Device Identifier Shelf Expiration Date Model / Serial / Lot [employer] [id number] Cinchlock Ss Knotless Associate Dean [employer] [place] Suture Labrum - Sn/A - [id number] Implanted:Qty : 1 on 09/26/2020 by Perry Hall MD at [facility] Other - see comments Right: Hip [facility] 02/04/2022 [id number] / N/A / [id number] [employer] [id number] Cinchlock Ss Knotless Associate [employer] [place] Suture Labrum - Sn/A - [id number] Implanted:Qty : 1 on 09/26/2020 by Perry Hall MD at [facility] Other - see comments Right: Hip [facility] 02/04/2022 [id number] / N/A / [id number] [employer] [id number] Cinchlock Ss Knotless Associate Dean Lock [place] Suture Labrum - Sn/A - [id number] Implanted:Qty : 1 on 09/26/2020 by Perry Hall MD at [facility] Other - see comments Right: Hip [facility] 11/19/2021 [id number] / N/A / [id number] [facility] 25-1800 Q-Fix 1.8mm [place] Suture - Sn/A - [id number] Implanted:Qty : 1 on 09/26/2020 by Perry Hall MD at [facility] Other - see comments Right: Hip [facility] 11/04/2022 25-1800 / N/A / [id number] Procedures Procedure Name Priority Date/Time Associated Diagnosis Comments TSH Routine 07/08/2025 2:11 PM TELEHEALTH NURSE EDUCATOR Hyperthyroidism T3, FREE Routine 07/08/2025 2:11 PM TELEHEALTH NURSE EDUCATOR Hyperthyroidism T4, FREE Routine 07/08/2025 2:11 PM TELEHEALTH NURSE EDUCATOR Hyperthyroidism HEPATITIS C ANTIBODY Routine 03/02/2025 8:24 AM CDT Need for hepatitis C screening test SCREENING MAMMOGRAM BILATERAL W PETER Schedule Routine, Read Routine (OP Routine) 07/25/2024 7:22 AM TELEHEALTH NURSE EDUCATOR Screening mammogram, encounter for from Last 3 Months or Most Recently Relevant to Health Maintenance Results * (ABNORMAL) T3, free (07/08/2025 2:11 PM TELEHEALTH NURSE EDUCATOR) Free T3 4.3(H) 2.3 - 4.2 pg/mL [facility] Blood 07/08/2025 2:11 PM TELEHEALTH NURSE EDUCATOR 07/08/2025 2:11 PM TELEHEALTH NURSE EDUCATOR us Cecilymcihelle Hamm TUBE BALANCER LAB BLOOD ORDERABLES Ghazal l Result Performing Organization Address [facility] Co de Phone Number [facility] [address] [place] [address] * (ABNORMAL) TSH (07/08/2025 2:11 PM TELEHEALTH NURSE EDUCATOR) [facility] TSH 0.11(L) mIU/L [facility] Comment: Reference Range > or = 20 Years 0.40-4.50 Ranges First trimester 0.26-2.66 Second trimester 0.55-2.73 Third trimester 0.43-2.91 Blood 07/08/2025 2:11 PM TELEHEALTH NURSE EDUCATOR 07/08/2025 2:11 PM TELEHEALTH NURSE EDUCATOR us Cecily Tommy Hamm TUBE BALANCER LAB BLOOD ORDERABLES Ghazal l Result Performing Organization Address [facility] de Phone Number [facility] [address] [place] [address] * T4, free (07/08/2025 2:11 PM TELEHEALTH NURSE EDUCATOR) [facility] Free T4 1.4 0.8 - 1.8 ng/dL [facility] Blood 07/08/2025 2:11 PM TELEHEALTH NURSE EDUCATOR 07/08/2025 2:11 PM TELEHEALTH NURSE EDUCATOR us Cecilymichelle Hamm TUBE BALANCER LAB BLOOD ORDERABLES Ghazal l Result Performing Organization Address [facility] Co de Phone Number [facility] [address] [place] [address] * Hepatitis C antibody Blood (03/02/2025 8:24 AM CDT) Hep C Ab NON-REACTI VE NON-REACT [facility] Comment: HCV antibody was non-reactive. There is no laboratory evidence of HCV infection. In most cases, no further action is required. However, if recent HCV exposure is suspected, a test for HCV RNA (test code 62801) is suggested. For additional information please refer to http://education.UP Online/faq/PPA45g2 (This link is being provided for informational/ educational purposes only.) Blood 03/02/2025 8:24 AM CDT 03/02/2025 8:25 AM CDT Narrative [facility] - 03/03/2025 7:07 AM CDT FASTING:YES FASTING: YES Lucia Mariscal MD LAB MICROBIOLOGY - [facility] ORDERABLES Final Result Performing Organization Address City/State/[facility] Co de Phone Number ADRI [facility] [address] [place] [address] * Screening Mammogram Bilateral W Peter (07/25/2024 7:22 AM TELEHEALTH NURSE EDUCATOR) Anatomical Region Laterality Modality Breast Bilateral Mammography 07/25/2024 1:43 PM TELEHEALTH NURSE EDUCATOR Impressions 07/25/2024 1:43 PM TELEHEALTH NURSE EDUCATOR There is no mammographic evidence to suggest malignancy. The patient may continue screening mammography as per ACR guidelines. FINAL ASSESSMENT: BI-RADS Category 1: Negative. Electronically signed by: Lori Tomas M.D. Narrative 07/25/2024 1:43 PM TELEHEALTH NURSE EDUCATOR EXAMINATION: BILATERAL SCREENING MAMMOGRAM WITH TOMOGRAPHY HISTORY: Screening. COMPARISON(S): 2022 and 2021 TECHNIQUE: Full-field 2D images and digital tomosynthesis images were obtained. CAD was utilized. BREAST PARENCHYMAL COMPOSITION: The breasts are heterogenously dense, which may obscure small masses. FINDINGS: There are no suspicious masses. No suspicious calcifications are seen. There is no unexplained architectural distortion. There is no skin thickening seen. There are no mammographically abnormal lymph nodes seen in the axillae or elsewhere. us Self Screening Mammogram IMG MAMMO PROCEDURES Fi nal Result from Last 3 Months or Most Recently Relevant to Health Maintenance Insurance [facility] Advance Directives For more information, please contact: [phone] * Full Code (Latest Code Status on File) Date Activated Date Inactivated Comments 03/06/2018 4:04 PM 03/08/2018 6:57 PM * Full Code Date Activated Date Inactivated Comments 03/05/2018 11:23 PM 03/06/2018 4:04 PM Full CPR in case of cardiopulmonary arrest Care Teams Bump Grader Operator Relationship Specialty Start Date End Date Lucia Mariscal MD [address] [place] [address] PCP - General Family Medicine 02/27/25 Ashley Echeverria DO [address] NADIYA Patel [facility] [address] [place] [address] Consulting Physician Otolaryngology 02/27/25 [place] [address] [address] [facility] [address] [place] [address] Consulting Physician Endocrinology Diabetes & Metabolism 02/27/25 Yasmany Anderson MD [address] [place] [address] Consulting Physician Pulmonary Disease 02/27/25
--- OUTSIDE RECORDS SUMMARY | 2025-07-26 01:00 | XMS_ITS | Encounter Summary ---
Author Organization [facility] Address [address] [place] [address] Care Team Providers Care Bowling Alley Operator Name Role Phone Ashley Echeverria DO Unavailable [phone] Julien Kaufman MD Unavailable [phone] Yasmany Anderson MD Unavailable Lucia Mariscal MD Primary Care Provide r Encounter Details Date Type Department Care Team (Late st Contact Info) Description 07/13/2025 Results Follow-Up [facility] Diabetes and Endocrinology [address] [place] [phone] Cecily Hamm, WILDLIFE CONSERVATION PROFESSOR [address] [facility] [address] [place] [address] T4, free, T3, free, TSH Social History Tobacco Use Types Packs/Day Years [...] on file Legal Sex Female 10:36 AM SECURITY INFRASTRUCTURE ENGINEER Gender Identity Female 08/25/2020 7:05 PM SECURITY INFRASTRUCTURE ENGINEER Sexual Orientation Not on file documented as of this encounter Miscellaneous Notes * Result Encounter Note - Cecily Hamm NP - 07/13/2025 1:30 PM SECURITY INFRASTRUCTURE ENGINEER Jelani Cullen, Your labs are showing increased hyperthyroidism. I have that you're currently taking methimazole 5mg daily. We need to increase the dose. Please change Tuesday to 2 tabs (total of 10mg) but keep the 1tab/5mg daily Tuesday through Tuesday. We'll repeat your labs in 2-3 months. [facility] [place] there. Please stop at your convenience in 2-3 months to have the labs drawn. Please call or send a [employer] message if any questions. Thank you, Cecily Hamm, DANNA-maria dolores RITY INFRASTRUCTURE ENGINEER documented in this encounter Plan of Treatment Upcoming Encounters Date Type Department Care Team (Late st Contact Info) Description 12/23/2025 7:30 AM CDT Hospital Encounter [address] [address] Mic Hernández, [address] [facility] [address] [place] [address] 12/23/2025 7:30 AM CDT - 12/23/2025 8:00 AM CDT Surgery [address] [address] Mic Hernández DO [address] [facility] [place] [address] COLONOSCOPY Scheduled Orders Name Type Priority Associated Diagnoses Orde r Schedule T3, free Lab Routine Hyperthyroidism Expected: 09/12/2025 (Approximate), Expires: 07/13/2026 T4, free Lab Routine Hyperthyroidism Expected: 09/12/2025 (Approximate), Expires: 07/13/2026 TSH Lab Routine Hyperthyroidism Expected: 09/12/2025 (Approximate), Expires: 07/13/2026 Scheduled Procedures Name Priority Associated Diagnoses Date/Ti me COLONOSCOPY Family history of colon cancer Encounter for screening colonoscopy 12/23/2025 7:30 AM CDT documented as of this encounter Visit Diagnoses Diagnosis Family history of colon cancer Family history of malignant neoplasm of gastrointestinal tract Encounter for screening colonoscopy Hyperthyroidism- Primary Thyrotoxicosis without mention of goiter or other cause, without mention of thyrotoxic crisis or storm Family history of colon cancer Family history of malignant neoplasm of gastrointestinal tract Encounter for screening colonoscopy documented in this encounter Care Teams Bowling Alley Operator Relationship Specialty Start Date End Date Lucia Mariscal MD [address] [place] [address] PCP - General Family Medicine 02/27/25 Ashley Echeverria DO [address] [place] [address] DR NADIYA Patel [address] [address] Consulting Physician Otolaryngology 02/27/25 [place] [id number] [address] Consulting Physician Endocrinology Diabetes & Metabolism 02/27/25 Yasmany Anderson MD [address] [place] [address] [address] [place] [address] Consulting Physician Pulmonary Disease 02/27/25 documented as of this encounter
[2025-07-26 06:31] VITALS: BP 143/85; PULSE 106; RESP 18; TEMP 36.4; O2SAT 100; BMI 30.9
[2025-07-26] MEDS: LACTATED RINGERS 1,000 ML 150 ML IV CONT (06:33)
[2025-07-26 06:35] LABS: BEDSIDEPREGUCG Negative (Negative)
--- NOTE | 2025-07-26 07:10 | WPDANESEPPF ---
Anes - Initial Pre Proc Eval Procedure: Operation Date: 07/26/25 07:30 Proposed Procedures p Screening Colonoscopy - Remi Gardiner MD Date/Time: 07/26/25 07:10 Surgeon: Remi Gardiner MD Pre Op Diagnosis: Family history of malignant neoplasm of digestive Patient Data Age: 44 Gender: F Height: 1.68 m Weight: 86.8 kg Last Vital Signs Temp 36.4 C L 07/26/25 06:31 Pulse 106 H 07/26/25 06:31 Resp 18 07/26/25 06:31 BP 143/85 H 07/26/25 06:31 Pulse Ox 100 07/26/25 06:31 O2 Del Method Room Air 07/26/25 06:31 Allergies Allergy/AdvReac Type Severity Reaction Status Date / Time strawberry Allergy Mild hives Verified 07/26/25 06:29 Home Medications ?Medication ?Instructions ?Recorded ?Confirmed ?Type acetaminophen 325 mg tablet 325 mg PO DIRECTED PRN Pain 03/10/20 07/26/25 History (Tylenol) desogestrel 0.15 mg-ethinyl 1 tablet PO DAILY 03/10/20 07/26/25 History estradiol 0.03 mg tablet (Enskyce) Laboratory Tests 07/26/25 06:31 POC Urine HCG, Qual Negative (Negative) Patient hx anesthesia problems: none Family hx anesthesia problems: none Results Review: All pre-operative results and documents have been reviewed as part of the pre-operative evaluation. [facility] Past Medical History Medical History Fatigue ETD (eustachian tube dysfunction) Chronic idiopathic constipation Acute nonintractable headache Acute non-recurrent frontal sinusitis Labral tear of left hip joint Shoulder impingement syndrome Hyperlipidemia Migraine Hypoglycemia Surgical History Surgical History S/P hip arthroscopy H/O arthroscopy of shoulder H/O excision of ganglion cyst (~2000) H/O excision of ganglion cyst (~1993) S/P right knee arthroscopy (~1998) Family History Family History Mother Family history of lung cancer, Onset Age: 60 Father Osteoarthritis Other Carcinoma of colon Social History Social History Social History: Single Smoking status: Never smoker Second hand tobacco smoke exposure: No Alcohol intake: never Substance use: never Substance use type: does not use Lack of Transportation: No Lack of Food: Never True Current Housing: I Have Housing Concerned About Future Housing: No Difficulty Paying Gas/Electric Bills: No Difficulty Paying for Meds: No Currently Unemployed: No Difficulty w/ Childcare or Family Care: No Living arrangements: with family Occupation/Education: occupation Gender identity (if verbalized by the patient): Female Sexual Orientation (if Verbalized by the Patient): Straight or Heterosexual Spiritual care concerns: No Agree to blood products: Yes Anes - Eval Final PreProcedure Day of Procedure 07/26/25 07:10 Patient weight: obese Heart: regular rate and rhythm Lungs: clear to auscultation Airway: Mallampati scale class II Neurological: alert and oriented Last oral intake: >/= 8 hours ASA classification: II Emergent: no Anesthetic plan: proceed Anesthesia type and monitoring: general GIVS and standard monitoring Results Review: All pre-operative results and documents have been reviewed as part of the pre-operative evaluation. Informed Consent: The patient's anesthetic plan and its attendant risks and benefits were discussed with the patient/family/POA. Questions were solicited and answers provided to the satisfaction of the patient/family/POA.
--- NOTE | 2025-07-26 07:28 | PM.HPGS ---
History of Present Illness History of Present Illness Consent: Risks, benefits, and alternatives have been discussed and questions answered. Patient agrees to proceed with procedure. Chief complaint: Family history of malignant neoplasm of digestive Narrative: Alyse Romo is a 44 year old female here for first screening colonoscopy Review of Systems Review of Systems: All systems reviewed & are unremarkable except as noted in HPI and below PMFSH Past Medical History Medical History (Updated 07/26/25 @ 07:28 by Remi Gardiner MD) Colon cancer screening Fatigue ETD (eustachian tube dysfunction) Chronic idiopathic constipation Acute nonintractable headache Acute non-recurrent frontal sinusitis Labral tear of left hip joint Shoulder impingement syndrome Hyperlipidemia Migraine Hypoglycemia Surgical History Surgical History S/P hip arthroscopy H/O arthroscopy of shoulder H/O excision of ganglion cyst (~2000) H/O excision of ganglion cyst (~1993) S/P right knee arthroscopy (~1998) Family History Family History Mother Family history of lung cancer, Onset Age: 60 Father Osteoarthritis Other Carcinoma of colon Social History Social History Social History: Single Smoking status: Never smoker Second hand tobacco smoke exposure: No Alcohol intake: never Substance use: never Substance use type: does not use Lack of Transportation: No Lack of Food: Never True Current Housing: I Have Housing Concerned About Future Housing: No Difficulty Paying Gas/Electric Bills: No Difficulty Paying for Meds: No Currently Unemployed: No Difficulty w/ Childcare or Family Care: No Living arrangements: with family Occupation/Education: occupation Gender identity (if verbalized by the patient): Female Sexual Orientation (if Verbalized by the Patient): Straight or Heterosexual Spiritual care concerns: No Agree to blood products: Yes Meds Home Medications and Allergies Home Medications ?Medication ?Instructions ?Recorded ?Confirmed ?Type acetaminophen 325 mg tablet 325 mg PO DIRECTED PRN Pain 03/10/20 07/26/25 History (Tylenol) desogestrel 0.15 mg-ethinyl 1 tablet PO DAILY 03/10/20 07/26/25 History estradiol 0.03 mg tablet (Enskyce) Allergies Allergy/AdvReac Type Severity Reaction Status Date / Time strawberry Allergy Mild hives Verified 07/26/25 06:29 Vital Signs Vital Signs - 24 hr 07/26/25 06:31 Temperature 97.5 F L Pulse Rate 106 H Respiratory Rate 18 Blood Pressure 143/85 H Pulse Oximetry 100 Oxygen Delivery Room Air Exam Const: General: comfortable and no acute distress HENMT: Face/Nose/Sinus: Normal nares present Eyes: General: appearance normal, both eyes and all related structures Neck: Neck: no JVD Resp: Auscultation: clear to auscultation bilaterally Cardio: Rate: regular rate Rhythm: regular rhythm GI: Inspection: non-distended GI Palp: Yes Soft to palpation Skin: General skin exam: normal color Extrem: General: normal to inspection Psych: Mental Status: mental status grossly normal Assessment and Plan Assessment and plan (1) Colon cancer screening: Code(s): Z12.11 - Encounter for screening for malignant neoplasm of colon Status: Acute Assessment and Plan: colonoscopy
[2025-07-26 07:44] VITALS: BP 97/45; PULSE 85; RESP 23; O2SAT 99
[2025-07-26 07:54] VITALS: BP 111/62; PULSE 86; RESP 23; O2SAT 99
[2025-07-26 08:04] VITALS: BP 115/66; PULSE 89; RESP 18; O2SAT 96
== END 2025-07-26 08:10 | disposition home or self-care (01) ==
PROVIDERS: Anesthesiology; PCP Family Medicine; Referring Provider Family Medicine; Visit Provider Internal Medicine Gastroenterology
PROC: 0DJD8ZZ Inspection of Lower Intestinal Tract, Via Natural or Artificial Opening Endoscopic (ICD-10-PCS; CPT 45378; principal; 2025-07-26 07:30)
DX: Z12.11 Encounter for screening for malignant neoplasm of colon (principal)
CPT/HCPCS: 45378; J7120